=== PATIENT | female | born 1995 | race Caucasian/White ===

== ENCOUNTER 2018-11-27 20:54 | Emergency (ER) | payer OTHER ==
[~2018-11-27] VITALS: Ht 157.5 cm; Wt 115.7 kg
[2018-11-27 21:09] VITALS: BP_SYST 124
--- NOTE | 2018-11-27 21:16 | NUR ---
Patient to ER bed 08 to gown for evaluation. Side rails up. Report given to Jolene MYLES.
--- NOTE | 2018-11-27 21:33 | NUR ---
ER at bedside examining patient.
--- NOTE | 2018-11-27 21:35 | NUR ---
Pt came to the ED for 09/25 RLQ ABD pain radiating to epigastric area and lower back for 1 week. Reports she has been taking tylenol and motrin with no relief. Reports nausea. Denies vomiting and diarrhea. No other complaints/injuries noted. Will cont. to monitor.
[2018-11-27] MEDS ORDERED: NACL 0.9% 1,000 ML IV ONE (21:38)
[2018-11-27] MEDS ORDERED: KETOROLAC TROMETHAMINE 30 MG VIAL IVP ONE (21:45)
[2018-11-27] MEDS ORDERED: PANTOPRAZOLE SODIUM 40 MG/VIAL (PROTONIX) IVP ONE (21:45)
[2018-11-27] MEDS ORDERED: ONDANSETRON HCL 4 MG/2 ML VIAL IVP ONE (21:45)
--- NOTE | 2018-11-27 21:45 | NUR ---
Pt informed myself that she had an ultrasound last week at [facility]. Reported that lab work and ultrasound were "inconclusive." Pt was instructed to take OTC pain medications. ER made aware.
[2018-11-27 21:58] LABS: BASOPHILS # (AUTO) 0.2 K/uL (0.0-0.2); EOSINOPHILS # (AUTO) 0.1 K/uL (0.0-0.4); EOSINOPHILS % (AUTO) 0.4 % (0.0-4.0); HEMATOCRIT 36.9 % (36-48); HEMOGLOBIN 12.2 g/dL (12.0-16.0); LYMPHOCYTES # (AUTO) 3.1 K/uL (1.0-5.5); LYMPHOCYTES % (AUTO) 18.4 % (20.5-51.5); MEAN CORPUSCULAR HEMOGLOBIN 27 pg (27-31); MEAN CORPUSCULAR HGB CONC 33 % (32-36); MEAN CORPUSCULAR VOLUME 82 fL (79.0-98.0); MONOCYTES % (AUTO) 5.7 % (1.7-9.3); NEUTROPHILS # (AUTO) 12.7 K/uL (1.8-7.7); NEUTROPHILS % (AUTO) 74.5 % (40.0-70.0); PLATELET COUNT (AUTO) 298 K/uL (130-430); RED BLOOD CELL COUNT(AUTO) 4.49 MIL/uL (4.2-6.2); RED CELL DISTRIBUTION WIDTH 15.2 % (9.0-15.0); WHITE BLOOD COUNT (AUTO) 17.1 K/uL (4.8-10.8)
[2018-11-27 22:13] LABS: CALCIUM 8.6 mg/dL (8.4-11.0); CREATININE 0.86 mg/dL (0.55-1.30); POTASSIUM 3.7 mmol/L (3.5-5.1)
[2018-11-27 22:19] LABS: ALBUMIN 3.4 g/dL (3.4-4.8); TOTAL BILIRUBIN 0.1 mg/dL (0.0-1.0)
--- NOTE | 2018-11-27 22:20 | NUR ---
PT signed CT with contrast consent. ER made aware. Consent placed in chart.
--- NOTE | 2018-11-27 22:29 | NUR ---
Pt went to CT scan via wheelchair. Tolerated well. Will cont. to monitor.
[2018-11-27] MEDS ORDERED: IOHEXOL 100 ML IV ONE (22:33)
--- NOTE | 2018-11-27 22:35 | NUR ---
Pt returned from CT scan. Tolerated well. Will cont. to monitor.
[2018-11-27 23:29] LABS: BILIRUBIN,URINE NEGATIVE (NEGATIVE); BLOOD, URINE NEGATIVE (NEGATIVE); CLARITY/URINE CLEAR (CLEAR); COLOR,URINE YELLOW (YELLOW); GLUCOSE,URINE NEGATIVE (NEGATIVE); KETONES,URINE NEGATIVE (NEGATIVE); LEUKOCYTE ESTERASE ,URINE TRACE (NEGATIVE); NITRITE, URINE NEGATIVE (NEGATIVE); PH,URINE 5.5 (5.0-8.0); PROTEIN URINE NEGATIVE (NEGATIVE); UROBILINOGEN,URINE 0.2 (0.2-1.0)
[2018-11-27 23:35] LABS: BACTERIA,URINE FEW /HPF (None Seen); RBC,URINE 0-3 /HPF (0-3)
--- NOTE | 2018-11-28 00:30 | NUR ---
Pt resting comfortably in bed, no signs of acute distress. Will cont. to monitor.
[2018-11-28] MEDS ORDERED: MORPHINE 4 MG/ML INJ. SYRINGE IVP ONE (01:15)
[2018-11-28] MEDS ORDERED: DIPHENHYDRAMINE INJ 50 MG/ML VIAL IVP ONE (01:15)
[2018-11-28] MEDS ORDERED: CIPROFLOXACIN HCL 500 MG TABLET PO ONE (01:30)
[2018-11-28 01:52] VITALS: BP_SYST 124
--- NOTE | 2018-11-28 01:52 | NUR ---
Patient given written and verbal discharge instructions and verbalizes understanding. ER MD Dr. Duff discussed with patient the results and treatment provided. Patient in stable condition. ID arm band removed. IV catheter removed intact and dressing applied, no active bleeding. Rx of tylenol with codeine and cipro given. Patient educated on pain management and to follow up with PMD. Pain Scale 0/10. Opportunity for questions provided and answered. Medication side effect fact sheet provided.
== END 2018-11-28 01:52 | disposition home or self-care (01) ==
LOC: SED 20:54
DX: N83.202 Unspecified ovarian cyst, left side (principal); D72.829 Elevated white blood cell count, unspecified
CPT/HCPCS: 36415; 74177; 76830; 76857; 80053; 81000; 81025; 83690; 85025; 87086; 96374; 96375; 99284; C9113; J1200; J1885; J2270; J2405; Q9967

== ENCOUNTER 2018-11-30 15:36 | Emergency (ER) | payer OTHER ==
[~2018-11-30] VITALS: Ht 157.5 cm; Wt 115.7 kg
[2018-11-30 15:36] VITALS: BP_SYST 147
--- NOTE | 2018-11-30 15:36 | NUR ---
BROUGHT BACK TO BED #8 AND TRIAGED. REPORT GIVEN TO SOLE
[2018-11-30] MEDS ORDERED: HYDROcodone/ACETAMIN 10-325 MG TAB PO ONE (15:45)
[2018-11-30] MEDS ORDERED: KETOROLAC TROMETHAMINE 60 MG/2 ML VIAL IM ONE (15:45)
--- NOTE | 2018-11-30 15:45 | NUR ---
ER at bedside examining patient.
[2018-11-30 16:38] LABS: BASOPHILS % (AUTO) 0.3 % (0.0-2.0); CALCIUM 8.7 mg/dL (8.4-11.0); CREATININE 0.68 mg/dL (0.55-1.30); EOSINOPHILS # (AUTO) 0.1 K/uL (0.0-0.4); HEMATOCRIT 39.8 % (36-48); LYMPHOCYTES # (AUTO) 3.1 K/uL (1.0-5.5); LYMPHOCYTES % (AUTO) 20.9 % (20.5-51.5); MEAN CORPUSCULAR HEMOGLOBIN 27 pg (27-31); MEAN CORPUSCULAR HGB CONC 33 % (32-36); MEAN CORPUSCULAR VOLUME 83 fL (79.0-98.0); MONOCYTES # (AUTO) 0.9 K/uL (0.0-1.0); MONOCYTES % (AUTO) 5.8 % (1.7-9.3); NEUTROPHILS # (AUTO) 10.8 K/uL (1.8-7.7); PLATELET COUNT (AUTO) 320 K/uL (130-430); POTASSIUM 4.2 mmol/L (3.5-5.1); RED BLOOD CELL COUNT(AUTO) 4.81 MIL/uL (4.2-6.2); RED CELL DISTRIBUTION WIDTH 15.1 % (9.0-15.0)
[2018-11-30 16:42] LABS: ALBUMIN 3.3 g/dL (3.4-4.8); PROTHROMBIN TIME 10.3 SECS (9.5-12.5); TOTAL BILIRUBIN 0.1 mg/dL (0.0-1.0)
--- NOTE | 2018-11-30 17:04 | NUR ---
DR FARAH SPEAKING WITH DR FREY FOR CONSULT
[2018-11-30] MEDS ORDERED: MORPHINE SULFATE 10 MG/ML VIAL IM ONE (17:15)
--- NOTE | 2018-11-30 17:21 | NUR ---
DR FREY HERE TO SEE AND EVALUATE PT.
[2018-11-30 17:38] VITALS: BP_SYST 124
--- NOTE | 2018-11-30 17:39 | NUR ---
Patient given written and verbal discharge instructions and verbalizes understanding. ER MD discussed with patient the results and treatment provided. Patient in stable condition. ID arm band removed. Rx of NORCO, MOTRIN, PROVERA (WRITTEN BY DR FREY) given. Patient educated on pain management and to follow up with PMD. Pain Scale 0/10. Opportunity for questions provided and answered. Medication side effect fact sheet provided.
== END 2018-11-30 17:39 | disposition home or self-care (01) ==
LOC: SED 15:36
DX: N83.202 Unspecified ovarian cyst, left side (principal)
CPT/HCPCS: 36415; 80053; 81025; 82150; 83690; 84703; 85025; 85610; 85730; 96372; 99283; J1885; J7030

== ENCOUNTER 2018-12-06 16:22 | Inpatient (IN) | payer OTHER ==
[~2018-12-06] VITALS: Ht 152.4 cm; Wt 115.7 kg
[2018-12-06 16:32] VITALS: BP_SYST 156
--- NOTE | 2018-12-06 16:32 | NUR ---
Ambulatory to bed 4
--- NOTE | 2018-12-06 16:45 | NUR ---
Patient presents to ER with pelvic pain. Patient A&Ox4, afebrile, skin pink, ambulatory to ER, arrived to ER with mother. Patient states pain 10/10, nausea present, denies N/D, patient states she has had pelvic pain x1 month, seen at Dr. Fink office for ovarian cyst. Patient states Dr. Fink request surgical procedure, pending insurance authorization. Patient states pain has increased with intermittent fevers x2 days.
--- NOTE | 2018-12-06 17:02 | NUR ---
ER Dr. Caballero at bedside examining patient.
[2018-12-06] MEDS ORDERED: ONDANSETRON HCL 4 MG/2 ML VIAL IVP ONE (17:15)
[2018-12-06] MEDS ORDERED: MORPHINE 4 MG/ML INJ. SYRINGE IVP ONE (17:15)
--- NOTE | 2018-12-06 17:35 | NUR ---
Patient to Radiology with staff for Ultrasound.
[2018-12-06 17:43] LABS: BASOPHILS # (AUTO) 0.1 K/uL (0.0-0.2); BASOPHILS % (AUTO) 0.6 % (0.0-2.0); EOSINOPHILS # (AUTO) 0.1 K/uL (0.0-0.4); EOSINOPHILS % (AUTO) 0.6 % (0.0-4.0); HEMATOCRIT 36.6 % (36-48); LYMPHOCYTES # (AUTO) 2.5 K/uL (1.0-5.5); LYMPHOCYTES % (AUTO) 15.3 % (20.5-51.5); MEAN CORPUSCULAR HEMOGLOBIN 27 pg (27-31); MEAN CORPUSCULAR HGB CONC 33 % (32-36); MEAN CORPUSCULAR VOLUME 82 fL (79.0-98.0); MONOCYTES # (AUTO) 0.8 K/uL (0.0-1.0); MONOCYTES % (AUTO) 4.8 % (1.7-9.3); NEUTROPHILS # (AUTO) 12.6 K/uL (1.8-7.7); NEUTROPHILS % (AUTO) 78.7 % (40.0-70.0); PLATELET COUNT (AUTO) 300 K/uL (130-430); RED BLOOD CELL COUNT(AUTO) 4.44 MIL/uL (4.2-6.2); RED CELL DISTRIBUTION WIDTH 15.7 % (9.0-15.0); WHITE BLOOD COUNT (AUTO) 16.1 K/uL (4.8-10.8)
[2018-12-06 17:50] LABS: CALCIUM 8.7 mg/dL (8.4-11.0); CREATININE 0.51 mg/dL (0.55-1.30); POTASSIUM 3.7 mmol/L (3.5-5.1)
[2018-12-06 17:55] LABS: ALBUMIN 3.4 g/dL (3.4-4.8); TOTAL BILIRUBIN 0.3 mg/dL (0.0-1.0)
--- NOTE | 2018-12-06 18:35 | NUR ---
Dr. Caballero at bedside discussing test results.
[2018-12-06] MEDS ORDERED: cefTRIAXone 1 GM in D5W 50 ML IV ONE (19:00)
[2018-12-06] MEDS ORDERED: fentaNYL CITRATE/PF 100 MCG/2 ML AMP IVP ONE (19:00)
--- NOTE | 2018-12-06 19:10 | NUR ---
Medication reconciliation completed with information provided by pATIENT, NO HOME MEDS
[2018-12-06] MEDS ORDERED: MORPHINE 4 MG/ML INJ. SYRINGE IVP PRN (19:15)
[2018-12-06] MEDS ORDERED: ONDANSETRON HCL 4 MG/2 ML VIAL IVP PRN (19:15)
--- NOTE | 2018-12-06 19:15 | NUR ---
REPORT GIVEN TO BRIANA MYLES
[2018-12-06] MEDS ORDERED: cefTRIAXone 1 GM VIAL ONE (19:30)
[2018-12-06 19:39] VITALS: BP_SYST 145
--- NOTE | 2018-12-06 19:39 | NUR ---
ADMISSION NOTE Received patient from ER via crystal, received telephone report from SHAR ZAMAN. Patient admitted with diagnosis of PELVIC PAIN/OVARIAN CYST. Patient oriented to hospital routine, call light, toileting and safety-patient verbalized understanding.
[2018-12-06] MEDS: D5/0.45 NS 1,000 ML IV SCH (20:01)
[2018-12-06] MEDS ORDERED: PROV10 PO (20:54)
[2018-12-06] MEDS ORDERED: IBUP-1970 PO (20:54)
[2018-12-06] MEDS ORDERED: TEMAZEPAM 15 MG CAPSULE PO SCH (21:00)
--- NOTE | 2018-12-06 21:00 | NUR ---
initial notes: pt is awake, alert, oriented x 4. no complain of pain at this time. not distress. stable. pt has right ac gauge 20- intact and patent, ivf infusing well. no infiltration. explained to pt plan of care, medication, safety and orient to room and call light. family at bedside. pt verbalized understanding. call light in reach. needs attended. will follow-up.
--- NOTE | 2018-12-06 22:24 | NUR ---
pt is awake, alert. texting. stable. no pain. needs attended. reminds to call for assistance. pt verbalized understanding.
--- NOTE | 2018-12-07 00:30 | NUR ---
sleeping, no pain. no sob. stable.
--- NOTE | 2018-12-07 02:15 | NUR ---
SLEEPING ON HER SIDE, COMFORTABLE. NO SOB. STABLE. IVF INFUSING WELL.
--- NOTE | 2018-12-07 04:00 | NUR ---
sleeping comfortable. no pain. no sob. stable.
[2018-12-07 04:09] VITALS: BP_SYST 123
[2018-12-07] MEDS: D5/0.45 NS 1,000 ML IV SCH ×2 (05:17→16:17)
--- NOTE | 2018-12-07 05:41 | NUR ---
assisted pt to bathroom with steady gait. back to bed. pt complain of pain 6/10 to lower abdomen. explained morphine side effects. pt verbalized understanding. pain medication given. needs attended. call light in reach. low bed position. will follow-up.
--- NOTE | 2018-12-07 06:57 | NUR ---
closing: pt awake, alert. no pain. not distress. ivf infusing well. stable. needs attended the whole. call light in reach. will give bedside report to incoming am rn.
--- NOTE | 2018-12-07 07:27 | NUR ---
OPENING NOTE Patient resting in the bed. No acute distress. No c/o pain at this time. AAO x 4. Skin warm and dry to touch. IV intact to RAC, no redness, no swelling, no drainage. On D5 1/2NS at 100ml/hr, infusing well. Discussed the safety issue, use call light when needs help, and plan of care. verbally understanding. Safety measure maintained. Call light within reached. Bed locked in low position, side rails up. Refused bed alarm, risk and benefit explained, verbally understanding. Will continue to monitor.
--- NOTE | 2018-12-07 07:45 | NUR ---
SEEN AND EXAMINED BY BRADY EISENBERG WITH ORDER RECEIVED.
[2018-12-07 07:46] LABS: INR 1.1 (0.8-1.2); PROTHROMBIN TIME 10.6 SECS (9.5-12.5)
[2018-12-07 07:50] VITALS: BP_SYST 141
[2018-12-07] MEDS ORDERED: GLYCOPYRROLATE 0.2 MG/ML VIAL IJ ONE (09:10)
[2018-12-07] MEDS ORDERED: ROCURONIUM BROMIDE 10 MG/ML (ZEMURON) IV ONE (09:10)
[2018-12-07] MEDS ORDERED: fentaNYL CITRATE 250 MCG/5 ML AMP IV ONE (09:10)
[2018-12-07] MEDS ORDERED: DEXAMETHASONE SOD PHOSPHATE 4 MG/ML VIAL IVP ONE (09:10)
[2018-12-07] MEDS ORDERED: LR 1,000 ML IV.SOLN IV ONE (09:10)
[2018-12-07] MEDS ORDERED: NS IRRIG SOLN 1000 ML IR ONE (09:10)
[2018-12-07] MEDS ORDERED: NEOSTIGMINE METHYLSULFATE 1 MG/ML, 10 ML VIAL IVP ONE (09:10)
[2018-12-07] MEDS ORDERED: SEVOFLURANE 15 MIN GAS INH ONE (09:10)
[2018-12-07] MEDS ORDERED: KETOROLAC TROMETHAMINE 30 MG VIAL IVP ONE (09:10)
[2018-12-07] MEDS ORDERED: PROPOFOL 200MG/ 20ML VIAL (DIPRIVAN) IV ONE (09:10)
[2018-12-07] MEDS ORDERED: MIDAZOLAM HCL 5 MG/5 ML VIAL IVP ONE (09:10)
[2018-12-07] MEDS ORDERED: ONDANSETRON HCL 4 MG/2 ML VIAL IVP ONE (09:10)
[2018-12-07] MEDS ORDERED: CEFAZOLIN 2 GM IVPB PREMIX 50 ML IV ONE (09:10)
--- NOTE | 2018-12-07 09:20 | NUR ---
OFF UNIT TO SURGERY VIA BED IN STABLE CONDITION.
[2018-12-07] MEDS ORDERED: LR 1,000 ML IV SCH (10:27)
[2018-12-07] MEDS ORDERED: HYDROmorphone 2 MG/ML VIAL IVP PRN ×2 (10:30)
[2018-12-07] MEDS ORDERED: MEPERIDINE HCL/PF 25 MG/ML DISP.SYRIN IVP PRN (10:30)
[2018-12-07] MEDS ORDERED: HYDROmorphone 1 MG INJ. 1 MG/ML AMPUL IVP PRN (10:30)
[2018-12-07] MEDS ORDERED: OXYCODONE/ACETAMINOPHEN 5-325 TABLET PO PRN (11:00)
[2018-12-07] MEDS ORDERED: HYDROcodone/ACETAMIN 5-325 MG TAB (NORCO/ VICODIN) PO PRN (11:00)
[2018-12-07] MEDS ORDERED: ONDANSETRON HCL 4 MG/2 ML VIAL IM PRN (11:00)
[2018-12-07] MEDS ORDERED: HYDROmorphone 2 MG/ML VIAL ONE (11:17)
[2018-12-07 12:05] VITALS: BP_SYST 138
--- NOTE | 2018-12-07 12:05 | NUR ---
BACK TO UNIT Patient back to unit via bed in stable condition. No acute distress noted. Denied of pain at this time. Skin warm and dry to touch. IV intact, no redness, no swelling, patent. IVF infusing well. Abdomen incision lap sites x 3 intact with sterile strip and covered with bandage, no bleeding noted. Family at bedside. Safety measure maintained. Call light within reached. Bed locked in low position, side rails up. Continue to monitor.
[2018-12-07] MEDS: SIMETHICONE 80 MG TAB.CHEW PO SCH ×2 (12:19→16:38)
--- NOTE | 2018-12-07 14:30 | NUR ---
BATHROOM Patient ambulatory to bathroom with minimum assisted. Void with yellow urine without problem. No acute distress. Safety measure maintained. Call light within reached. Bed locked in low position, side rails up, bed alarm on. Family at bedside. Continue to monitor.
--- NOTE | 2018-12-07 15:24 | NUR ---
PERCOCET GIVEN Patient c/o abdomen incision site pain 4/10, Percocet 5/325mg 1 tab PO given as ordered. No acute distress. Safety measure maintained. Call light within reached. Bed locked in low position, side rails up. Continue to monitor.
--- NOTE | 2018-12-07 15:49 | NUR ---
PAGED PAGED USAMA MALDONADO AT [phone] SPOKE WITH BRANDON.
--- NOTE | 2018-12-07 15:57 | NUR ---
CALLED AND RECEIVED THE CALL BACK FROM DR. FINK, BRADY Reported to Dr. Fink, patient's heart rate was 70s-80s. However, heart rate increased to 100s 45 mins after back from surgery, Percocet given for pain 4/10 30 mins ago but heart rate still in 100s. The patients WBC=16.1 yesterday and the patient only received Rocephin x1 yesterday. Dr. Cormier stated "do CBC at 1800 and call me when the result back, not to discharge patient now". Also informed to Dr. Fink, per patient she will be off the work for a week but no paper and patient only has 4 tab of [place] at home but no new prescription. Dr. 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
[2018-12-07 16:00] VITALS: BP_SYST 117; BP_SYST 141
--- NOTE | 2018-12-07 17:21 | NUR ---
PATIENT AMBULATORY IN THE HALLWAY WITH FAMILY IN STEADY GAIT. NO ACUTE DISTRESS.
[2018-12-07 18:38] LABS: BASOPHILS % (AUTO) 0.1 % (0.0-2.0); HEMOGLOBIN 12.1 g/dL (12.0-16.0); LYMPHOCYTES # (AUTO) 0.6 K/uL (1.0-5.5); LYMPHOCYTES % (AUTO) 5.3 % (20.5-51.5); MEAN CORPUSCULAR HEMOGLOBIN 27 pg (27-31); MEAN CORPUSCULAR HGB CONC 33 % (32-36); MEAN CORPUSCULAR VOLUME 82 fL (79.0-98.0); MONOCYTES # (AUTO) 0.1 K/uL (0.0-1.0); MONOCYTES % (AUTO) 0.7 % (1.7-9.3); NEUTROPHILS # (AUTO) 10.6 K/uL (1.8-7.7); NEUTROPHILS % (AUTO) 93.9 % (40.0-70.0); PLATELET COUNT (AUTO) 303 K/uL (130-430); RED BLOOD CELL COUNT(AUTO) 4.51 MIL/uL (4.2-6.2); RED CELL DISTRIBUTION WIDTH 15.4 % (9.0-15.0); WHITE BLOOD COUNT (AUTO) 11.3 K/uL (4.8-10.8)
--- NOTE | 2018-12-07 18:40 | NUR ---
CLOSING NOTE Patient resting in the bed. No acute distress. No c/o pain at this time. Skin warm and dry to touch. IV intact to RAC, no redness, no swelling, no drainage. On D5 1/2NS at 100ml/hr, infusing well. On s/p lap, abdomen incision sites x 3, covered with sterile stripe and bandage, no bleeding noted. All needs met. Safety measure maintained. Call light within reached. Bed locked in low position, side rails up. Refused bed alarm, risk and benefit explained, verbally understanding. Will endorse to night nurse.
--- NOTE | 2018-12-07 19:22 | NUR ---
CALLED BRADY EISENBERG FOR CBC RESULT Reported to Dr. iFnk, patient's WBC=11.3, Hgb=12.1, Hct=37.0. Patient's BP stable but heart rate=80s -110. Dr. Fink stated "that is okay to discharge patient tonight". Dr. Fink also sent the e-prescription to [facility] that patient prefers. Patient informed. Endorse to night nurse, Nayeli.
--- NOTE | 2018-12-07 19:30 | NUR ---
INITIAL NOTES RECEIVED HANDOFF REPORT FROM OFFGOING NURSE AT THE BEDSIDE. PATIENT IS RESTING COMFORTABLY IN BED, AAOX4. NO SOB, NO ACUTE DISTRESS, NO SIGNS OF PAIN OR FACIAL GRIMACING NOTED. BED IS LOCKED, IN THE LOWEST POSITION, 2X SIDE RAILS UP, BED ALARM IS ON. CALL LIGHT IS WITHIN REACH. ENCOURAGED PATIENT TO CALL FOR ASSISTANCE. WILL CONTINUE WITH PLAN OF CARE.
[2018-12-07 19:38] VITALS: BP_SYST 141
[2018-12-07 20:00] VITALS: BP_SYST 141
--- NOTE | 2018-12-07 20:00 | NUR ---
IV SITE REMOVED. CATHETER INTACT. PATIENT TOLERATED PROCEDURE WELL.
--- NOTE | 2018-12-07 20:54 | NUR ---
D/C Patient Patient given medication reconciliation form and D/C instructions. Exit Care provided. Patient verbalized understanding. MD discussed with patient the results and treatment provided. Ambulatory with steady gait for discharge to home. Patient in stable condition, ID band removed. Patient educated on pain management. All belongings sent with patient.
== END 2018-12-07 20:54 | disposition home or self-care (01) | DRG 742 ==
LOC: SED 16:22 → SMU 18:59
PROVIDERS: ADMIT Specialist; ATTEND Specialist
PROC: 0UDB7ZX Extraction of Endometrium, Via Natural or Artificial Opening, Diagnostic (ICD-10-PCS; principal; 2018-12-06)
PROC: 0UB14ZZ Excision of Left Ovary, Percutaneous Endoscopic Approach (ICD-10-PCS; 2018-12-06)
PROC: 0U914ZZ Drainage of Left Ovary, Percutaneous Endoscopic Approach (ICD-10-PCS; 2018-12-06)
DX: N83.202 Unspecified ovarian cyst, left side (principal); N39.0 Urinary tract infection, site not specified; Z68.42 Body mass index [BMI] 45.0-49.9, adult; N92.6 Irregular menstruation, unspecified; E66.01 Morbid (severe) obesity due to excess calories
CPT/HCPCS: 36415; 76830-TC; 76857; 80053; 84702-TC; 85025; 85610-TC; 85730-TC; 86886; 86900; 86901; 87040-TC; 87081; 87086; 88108; 88305; 99285; J0690; J0696; J1100; J1170; J1885; J2250; J2270; J2405; J2704; J2710; J3010; J3490; J7120

== ENCOUNTER 2019-04-03 16:03 | Emergency (ER) | payer OTHER ==
[~2019-04-03] VITALS: Ht 157.5 cm; Wt 127.0 kg
[~2019-04-03 16:03] MED LIST: IBUP-1970 PO; PROV10 PO
[2019-04-03 16:25] VITALS: BP_SYST 160
--- NOTE | 2019-04-03 16:35 | NUR ---
Patient to ER bed 5 to gown for evaluation. Side rails up.
--- NOTE | 2019-04-03 16:38 | NUR ---
MIKA Wilcox at bedside examining patient.
--- NOTE | 2019-04-03 16:40 | NUR ---
PT GETTING LABS DRAWN AT THE BEDSIDE
[2019-04-03] MEDS ORDERED: KETOROLAC TROMETHAMINE 60 MG/2 ML VIAL IM ONE (16:45)
--- NOTE | 2019-04-03 17:15 | NUR ---
medicated the pt w/ Toradol IM per MD order. Will reassess
[2019-04-03] MEDS ORDERED: traMADol HCL HCL 50 MG TABLET (ULTRAM) PO ONE (17:45)
--- NOTE | 2019-04-03 17:45 | NUR ---
medicated the pt w/ Utlram PO per md order. Will reassess
--- NOTE | 2019-04-03 17:51 | NUR ---
pelvic US curretly pending
--- NOTE | 2019-04-03 18:31 | NUR ---
pt returned from US
[2019-04-03 19:17] LABS: BILIRUBIN,URINE NEGATIVE (NEGATIVE); BLOOD, URINE NEGATIVE (NEGATIVE); CLARITY/URINE SLIGHTLY HAZY (CLEAR); COLOR,URINE YELLOW (YELLOW); GLUCOSE,URINE NEGATIVE (NEGATIVE); KETONES,URINE NEGATIVE (NEGATIVE); LEUKOCYTE ESTERASE ,URINE NEGATIVE (NEGATIVE); NITRITE, URINE NEGATIVE (NEGATIVE); PH,URINE 5.5 (5.0-8.0); PROTEIN URINE NEGATIVE (NEGATIVE); UROBILINOGEN,URINE 0.2 (0.2-1.0)
--- NOTE | 2019-04-03 19:18 | NUR ---
report given to Kamari
[2019-04-03 19:19] LABS: BACTERIA,URINE MODERATE /HPF (None Seen); RBC,URINE 0-3 /HPF (0-3); YEAST,URINE Few /HPF (None Seen)
[2019-04-03 19:20] LABS: MUCUS,URINE 2+ /LPF (None Seen)
[2019-04-03 19:40] VITALS: BP_SYST 145
--- NOTE | 2019-04-03 19:40 | NUR ---
Patient given written and verbal discharge instructions and verbalizes understanding. ER MD Dr. Middleton discussed with patient the results and treatment provided. Patient in stable condition. ID arm band removed. Rx of Tramadol and Ibuprofen given. Patient educated on pain management and to follow up with PMD. Pain Scale 4/10. Opportunity for questions provided and answered. Medication side effect fact sheet provided.
== END 2019-04-03 19:40 | disposition home or self-care (01) ==
LOC: SED 16:03
DX: N83.201 Unspecified ovarian cyst, right side (principal)
CPT/HCPCS: 36415; 74176; 76830; 76857; 81000; 81025; 84702; 87086; 96372; 99284; J1885

== ENCOUNTER 2019-04-07 13:27 | Emergency (ER) | payer OTHER ==
[~2019-04-07] VITALS: Ht 157.5 cm; Wt 113.4 kg
--- NOTE | 2019-04-07 15:40 | NUR ---
Patient to ER bed 3 to gown for evaluation. Side rails up.
--- NOTE | 2019-04-07 15:42 | NUR ---
ER at bedside examining patient.
[2019-04-07] MEDS ORDERED: ONDANSETRON HCL 4 MG/2 ML VIAL IVP ONE (15:45)
[2019-04-07] MEDS ORDERED: NACL 0.9% 1,000 ML IV ONE (15:45)
[2019-04-07] MEDS ORDERED: MORPHINE 2 MG/ML INJ. SYRINGE IVP ONE ×2 (15:45→18:15)
--- NOTE | 2019-04-07 15:49 | NUR ---
pt arrives from home w/ c/o right sided abd pain. Pt states having hx of ovarian cyst. No other c/o at the moment
--- NOTE | 2019-04-07 16:15 | NUR ---
urine collected and sent to lab
--- NOTE | 2019-04-07 16:45 | NUR ---
# 20 gauge angiocath placed to LAC. Use of asceptic technique. Opsite placed over site. Blood return noted. Blood for lab drawn from site. Flushed with 10 cc of normal saline. No evidence of infiltration noted. Patient tolerated well.
--- NOTE | 2019-04-07 16:50 | NUR ---
medicated the pt w/ NS 1l and Morphine 2mg per MD order.
--- NOTE | 2019-04-07 17:10 | NUR ---
Patient transported to radiology via gurney, accompanied by metal casting trades worker.
[2019-04-07 17:11] LABS: CALCIUM 8.2 mg/dL (8.4-11.0); CREATININE 0.56 mg/dL (0.55-1.30); POTASSIUM 3.8 mmol/L (3.5-5.1)
[2019-04-07] MEDS ORDERED: IOHEXOL 100 ML IV ONE (17:38)
--- NOTE | 2019-04-07 18:37 | NUR ---
pt retunred form CT scan
[2019-04-07 19:10] VITALS: BP_SYST 125
--- NOTE | 2019-04-07 19:15 | NUR ---
Patient given written and verbal discharge instructions and verbalizes understanding. ER MD discussed with patient the results and treatment provided. Patient in stable condition. ID arm band removed. IV catheter removed intact and dressing applied, no active bleeding. Patient educated on pain management and to follow up with PMD. Pain Scale 3/10. Opportunity for questions provided and answered. Medication side effect fact sheet provided.
== END 2019-04-07 19:10 | disposition home or self-care (01) ==
LOC: SED 13:27
DX: R10.2 Pelvic and perineal pain (principal); Z79.899 Other long term (current) drug therapy
CPT/HCPCS: 36415; 74177; 80048; 81002; 81025; 96374; 96375; 96376; 99284; J2270; J2405; J7030; Q9967